=== PATIENT | female | born 1955 | race Caucasian/White ===

== ENCOUNTER 2018-06-13 13:52 | Day surgery (SDC) | payer MEDICARE, SELFPAY ==
--- NOTE | 2018-06-13 | PATH_ITS ---
[facility] Accession Number: [id number] . 01 Material submitted: . PART A: DUODENAL BIOPSY PART B: ANTRAL BIOPSY PART C: GE JUNCTION BIOPSY . 02 Diagnosis: A. Duodenum, Biopsy: Duodenal mucosa with no diagnostic abnormality. Negative for active inflammation, features of sprue, dysplasia or malignancy. . B. Antrum, Biopsy: Gastric antral mucosa with no diagnostic abnormality. No evidence of Helicobacter organisms on H/E stain. Negative for intestinal metaplasia, dysplasia or malignancy. . C. Gastroesophageal Junction, Biopsy: Squamocolumnar junctional mucosa with mild active inflammation, consistent with reflux esophgitis. Negative for fungal organisms on PAS stain. Negative for specialized intestinal metaplasia, dysplasia or malignancy. [facility]/06/16/2018 . 02 Electronically signed: . Cruz Mackay MD, PhD, Pathologist NPI- [id number] . 01 Gross description: . Part A: DUODENAL BIOPSY: Received in formalin is 1 fragment(s) of montesinos, soft tissue measuring 0.4 x 0.4 x 0.2 cm submitted entirely in 1 cassette(s) Part B: ANTRAL BIOPSY: Received in formalin is 1 fragment(s) of montesinos, soft tissue measuring 0.3 x 0.3 x 0.3 cm submitted entirely in 1 cassette(s) Part C: GE JUNCTION BIOPSY: Received in formalin are 2 fragment(s) of montesinos, soft tissue measuring 0.5 x 0.3 x 0.3 cm to 0.5 x 0.2 x 0.1 cm submitted entirely in 1 cassette(s) /CKI /CKI . 02 Microscopic: . Part C: A PAS stain is performed to evaluate for fungal organisms and is negative. A control stain shows appropriate reactivity. . 02 Pathologist provided ICD-10: K21.0 . 02 CPT . 397516, [id number], 124447, [id number] Performed at: 01 [facility] [address] [place] [address], [place], [place] [id number] MD Surya Torres MD Phone: [phone] Performed at: 02 [facility] [address] [place], [place] [id number] MD Casey Gordon MD Phone: [phone]
[2018-06-13 14:39] VITALS: BP 115/73; PULSE 89; RESP 20; TEMP 36.4; O2SAT 99; BMI 27.1
[2018-06-13] MEDS: SODIUM CHLORIDE 0.9% 1,000 ML 200 ML IV (15:30)
[2018-06-13] MEDS: LIDOCAINE 4% SOLN 50 ML 20 ML TOP (15:32)
[2018-06-13] MEDS: TETRACAINE/BENZOCAINE/BUTAMBEN (CETACAINE) BOTTLE 1 SPRAY TOP (15:33)
[2018-06-13] MEDS: MIDAZOLAM 5 MG/5 ML VIAL IV (15:50)
[2018-06-13] MEDS: fentaNYL 250 MCG/5 ML INJ IV (15:51)
--- NOTE | 2018-06-13 15:51 | PM.PREOP ---
Pre-operative Note Interval Note Pre-op Check: Yes History & Physical Reviewed by Physician Changes: No ASA Class (for procedural sedation): II
--- NOTE | 2018-06-13 15:51 | PM.OP.1 ---
Operative Date/Time/Diagnoses Date of procedure: 06/13/18 Time of procedure: 15:51 Pre-op diagnosis: Dysphagia GERD Post-op diagnosis: same Procedure & Clinicians Procedure: Esophagogastroduodenoscopy with biopsies Same procedure as scheduled: Yes Indications: Mild dysphagia Longstanding reflux symptoms Surgeon: Ela Flor Click Yes if Unassisted: Yes Anesthesia Type: Sedation (Versed 14 mg; fentanyl 450 mcg) Operative Notes Findings: 1. Normal-appearing duodenum with healthy robust breast border 2. Mild antral gastritis with multiple superficial ulcerations in the pyloric channel. No bleeding or stigmata of recent bleeding 3. GE junction at 38 cm from the incisors with a 2 cm hiatal hernia. Mildly irregular Z-line. 4. Normal posterior oropharynx and esophageal mucosa Closure Type: not applicable Estimated Blood Loss (mL): 1 Procedure in detail: After obtaining informed consent, the patient was brought to the GI suite and placed in the left lateral decubitus position on the examination table. After placement of appropriate monitors, the patient was given incremental doses of Versed and Fentanyl until an appropriate level of sedation was achieved. A time out was held per [facility] protocol. A bite block was gently placed between the patient's teeth. The endoscope was lubricated and then passed into the patient's posterior oropharynx. The esophagus was cannulated under direct vision and the scope was passed to the second portion of the duodenum without difficulty. The scope was then withdrawn with careful examination of all areas of the upper GI tract and mucosa. In the stomach, the instrument was retroflexed and the GE junction examined. The scope was straightened and the procedure continued with examination of the remainder of the upper GI tract. Findings are noted above. Air was aspirated from the stomach and the endoscope gently removed from the esophagus. The patient was allowed to awaken from sedation without difficulty and taken to the post-anesthesia care unit in good condition. Total sedation time was 37 min Complications: none Condition: stable Disposition: PACU Plan for aftercare: 1. Discharge to home 2. We will contact you with pathology results and recommendations
[2018-06-13 15:53] VITALS: BP 97/60; PULSE 92; RESP 16; TEMP 36.4; O2SAT 96
[2018-06-13 16:10] VITALS: BP 103/65; PULSE 93; RESP 18; TEMP 36.4; O2SAT 94
[2018-06-13 16:23] VITALS: BP 100/60; PULSE 89; RESP 18; TEMP 36.4; O2SAT 936
== END 2018-06-13 16:35 | disposition home or self-care (01) ==
PROVIDERS: PCP Internal Medicine; Visit Provider Surgery
PROC: 0DJ08ZZ Inspection of Upper Intestinal Tract, Via Natural or Artificial Opening Endoscopic (ICD-10-PCS; CPT 43235; principal; 2018-06-13 15:30)
DX: K21.0 Gastro-esophageal reflux disease with esophagitis (principal); K29.70 Gastritis, unspecified, without bleeding; K44.9 Diaphragmatic hernia without obstruction or gangrene
CPT/HCPCS: 43239; 99152; 99153; J2250; J3010